=== PATIENT | female | born 1935 | race Caucasian/White ===

== ENCOUNTER 2018-08-28 09:16 | Inpatient (IN) | payer OTHER ==
[~2018-08-28] VITALS: Ht 152.4 cm; Wt 50.4 kg
[2018-08-28 09:16] VITALS: BP 167/78
[~2018-08-28 09:16] MED LIST: ATIVAN1 MG PO; BISACODYL SUPP10 MG RECTAL; CALCIUM 600 +1 EAC1 PO; CEFTIN 250 MG250 MG PO; CIPRO500 MG PO; CITRATE OF MAG296 ML PO; COLACE 100 MG100 MG PO; COREG3.125 MG PO; COREG6.25 MG PO; FLOMAX0.4 MG PO; HYDROCHLOROTH12.5 M1 PO; LEVOTHYROXINE 0.1 MG PO; MILK OF MA2400 MG/10 PO; NORCO 5-325 TA1 EACH PO; NORVASC5 MG PO; PEPCID20 MG PO; PHENERGAN12.5 M2 RECTAL; PREDNISONE 20 M20 MG PO; ROXICODONE5 M2 PO; SENNA8.6 MG PO; SEROQUEL 25 MG25 M1 PO; SPIRIVA INH; TRANSDERM-SCO1 PATC1 TRANSDERM; TYLENOL325 MG PO; VALSARTAN-HCTZ1 EAC1 PO; VENTOLIN HFA 1818 GM INH; ZOCOR20 MG PO; ZOFRAN ODT4 MG DISSOLVE
[2018-08-28 11:30] LABS: ABSOLUTE NEUTROPHILS 7.4 thou/uL (1.4-8.2); BASOPHILS 0.6 % (0.0-2.0); EOSINOPHILS 0.6 % (0.0-3.0); HEMOGLOBIN 14.2 gm/dL (12.0-15.0); LYMPHOCYTES 9.4 % (24.0-44.0); MCH 30.8 pg (26.0-34.0); MCHC 33.9 g/dL (28.0-37.0); MCV 90.9 fL (80.0-100.0); MONOCYTES 8.2 % (1.0-8.0); PLATELET COUNT 295 thou/uL (150-400); POLYS 81.2 % (36.0-66.0); RBC 4.62 mil/uL (4.20-5.00); RDW 13.3 % (10.5-14.5); WBC 9.1 thou/uL (4.0-11.0)
[2018-08-28 11:36] LABS: CALCIUM 9.3 mg/dL (8.5-10.1); CREATININE 0.6 mg/dL (0.6-1.0); POTASSIUM 3.8 mmol/L (3.5-5.1)
[2018-08-28 12:35] LABS: URINE BILIRUBIN NEGATIVE (Negative); URINE BLOOD TRACE (Negative); URINE CLARITY CLEAR; URINE GLUCOSE-RANDOM* NEGATIVE (Negative); URINE KETONES NEGATIVE (Negative); URINE LEUKOCYTES-REFLEX NEGATIVE (Negative); URINE NITRITE-REFLEX NEGATIVE (Negative); URINE PROTEIN (DIPSTICK) NEGATIVE (Negative); URINE SPECIFIC GRAVITY <= 1.005 (1.005-1.035); URINE UROBILINOGEN 0.2 E.U./dl (0.2-1.0)
[2018-08-28] MEDS ORDERED: SYNTHROID100 MC1 PO (12:36)
[2018-08-28] MEDS ORDERED: ATIVAN1 MG PO (12:36)
[2018-08-28 12:37] LABS: URINE COLOR LT YELLOW
[2018-08-28] MEDS ORDERED: CLOBETASOL PROP15 GM TOP (12:37)
[2018-08-28] MEDS ORDERED: MIRALAX17 GM PO (14:11)
[2018-08-28] MEDS ORDERED: STOOL SOFT-STI1 EACH PO (14:11)
[2018-08-28] MEDS ORDERED: REMERON15 MG PO (14:12)
[2018-08-28 15:10] VITALS: BP 137/74
[2018-08-28 17:27] VITALS: BP 137/74
[2018-08-28 17:53] VITALS: BP 128/79
[2018-08-28 19:30] VITALS: BP 130/60
--- NOTE | 2018-08-28 20:33 | NUR ---
Assumed pt care from the ER, pt is alert and oriented x 4 but needs extra time to answer. Pt has a sling on her left arm, pt did not want any pain medication since pain in minimal when she is not moved. Pt was able to use the bedside commode with 1 person assists. bed and chair alarm in placed and hourly rounding done. POC followed.
[2018-08-29 04:14] VITALS: BP 141/61
--- NOTE | 2018-08-29 04:37 | NUR ---
Pt. rested quietly at intervals during the night when checked on during frequent rounds. She did c/o some left shoulder pain and po tylenol given (see emar) with some relief noted. Left shoulder in immobilizer. Bed alarm on.
[2018-08-29 07:05] VITALS: BP 105/48
[2018-08-29 07:12] VITALS: BP 148/67
--- NOTE | 2018-08-29 07:21 | NUR ---
PATIENT WITH A CLAVICLE FRACTURE, WILL EVALUATE PATIENT AFTER ORTHO CONSULT.
--- NOTE | 2018-08-29 10:10 | NUR ---
PATIENT CARE WAS ASSUMED AT 0715.PATIENT IS ALERT AND ORIENTED X4.PATIENT HAS SLING ON LEFT SHOULDER.PT IS X1 ASSIST TO BR.ORTHO VISIT PT THIS MORNING AND WILL NOT DO ANY SURGERY, PT IS ABLE TO DO WHAT SHE CAN TOLERATE.FALL PRECAUTIONS ARE IN PLACE.CALL LIGT,PHONE, AND PERSONAL BELONGINGS ARE WITHIN REACH.
--- NOTE | 2018-08-29 14:47 | NUR ---
PT ADMITTED RELATEDED TO FALL WITH LEFT CLAVICLE FRACTURE. CM REVIEWED CHART AND SPOKE WITH CARE TEAM. CM MET WITH PT AND DTR IN [facility] AT BEDSIDE THIS DAY. THEY INDIATED THAT PT RESIDES IN A HOUSE WITH HER SPOUSE WITH 1 STEP TO ENTER AND 1 STEPS INSIDE. 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 PT INDICATED SHE HAD USED [facility] IN THE PAST. PT INDICATED SHE HAD BEEN TO [facility] IN THE PAST BUT THAT IF POST ACUTE CARE STAY WAS RECEOMMENDED SHE WOULD BE INTERESTED IN LOOKING ELSEWHERE. CM PROVIDED THEM WITH A [facility] SN[facility] LIST FOR REVIEW. CM TO FOLLOW UP WITH THEM TO SEE WHERE THEY WANT REFERRALS SENT. CM TO FOLLOW INDICATED WITH DC PLANNING.
[2018-08-29 14:55] VITALS: BP 127/81
[2018-08-29 19:26] VITALS: BP 122/65
--- NOTE | 2018-08-30 03:52 | NUR ---
Pt. rested quietly during the night when checked on during frequent rounds. She did c/o some pain in her left shoulder and po tylenol given (see emar) with some relief noted. Left arm in immobilzer. Bed alarm is on.
[2018-08-30 05:19] VITALS: BP 130/72
[2018-08-30 07:40] VITALS: BP 146/68
[2018-08-30 08:33] VITALS: BP 146/68
--- NOTE | 2018-08-30 09:20 | NUR ---
PATIENT CARE WAS ASSUMED AT 0715.PATIENT IS ALERT AND ORIENTED X4.PATIENT HAS SPOUSE AT BEDSIDE.PT IS X1 ASSIST TO BR OR BSC.PATIENT HAS NO PAIN AT THIS TIME.IV IS INTACT AND PATENT.CALL LIGHT,PHONE, AND PERSONAL BELONGINGS ARE WITHIN REACH.
--- NOTE | 2018-08-30 10:15 | NUR ---
DISCHARGE PLANNING. PATIENT IS MEDICALLY READY FOR DISCHARGE. POST ACUTE RECOMMENDED FOR PATIENT. REFERRAL FAXED TO [facility] FOR [facility] CARE NEEDS PER PATIENT REQUEST. CALL PLACED TO [facility] TO NOTIFY OF REFERRAL AND THAT PATIENT IS READY FOR DISCHARGE TODAY. [facility] TO REVIEW AND NOTIFY CM. FOLLOWING TO ASSIST.
--- NOTE | 2018-08-30 10:53 | HC ---
[facility] [place] [address] CONSULTATION Name: BRODIE DAVIDSON Room #: 452- ADM IN M.R.#: [id number] Admission: 08/28/18 ������������������ Attend Phys: Kip De Luna MD Discharge: ������������������ Date of : 31 Report #: [id number] THIS REPORT FOR: //name// CC: Austin De Luna DATE OF SERVICE: 08/29/2018 CHIEF COMPLAINT: Left clavicle fracture. HISTORY OF PRESENT ILLNESS: This very frail 83-year-old female has had a previous stroke and has strength and balance problems. She has had multiple falls. She apparently fell from her bed at home yesterday. She awoke and had more left shoulder pain and was admitted. X-rays confirm a fracture of the left distal clavicle. The shoulder itself appears to be well aligned and no evidence of fracture involving the proximal humerus nor any evidence of dislocation involving the shoulder joint. She has no other significant injuries. At the time of my evaluation, she is alert and oriented and accompanied by her spouse. They note that she does have problems with balance and has to use a walker and has had frequent falls in the past. Today, there is some bruising and tenderness over the left shoulder, in the region of the distal clavicle. There appears to be slight upriding, consistent with a distal clavicle fracture. The overlying skin is intact. The shoulder itself demonstrates satisfactory alignment and stability with gentle range of motion. The elbow, forearm, wrist and hand appear to be normal. X-rays of left shoulder confirm a fracture of the distal clavicle, with slight elevation and significant degenerative change at the acromioclavicular joint. I think this fracture should do nicely with conservative management. I doubt any surgery will be necessary. She can use an arm sling for support and protection and comfort. However, she may use the arm at any point whenever her level of comfort will allow. I suspect she will need to have the use of the arm to utilize her walker for safety and balance purposes. Consequently, she probably cannot ambulate independently until she is sufficiently comfortable to use her walker for safety and balance. In the interim, she will need additional help for balance and safety during transfers and ambulation. I feel she can begin to use the arm even now for gentle limited use if this is feasible for balance and use her walker. If she is too uncomfortable, then we will simply need to avoid the use of the walker and continue with arm sling protection until [address] [address] CONSULTATION Name: BRODIE DAVIDSON Room #: 452-P [facility] IN ..#: [id number] Admission: 08/28/18 ������������������ Attend Phys: Kip De Luna MD Discharge: ������������������ Date of : 31 Report #: [id number] her symptoms improve sufficiently sometime over the coming several weeks. I would suggest a followup visit and x-ray in my office in 3-4 weeks. ��������������������������������������������� <ELECTRONICALLY SIGNED> ���������������������������������������� By: Ayden Victor MD ��������������������������������������������� 08/30/18 [id number] Ayden Victor MD /nt
--- NOTE | 2018-08-30 13:19 | NUR ---
cm left [facility] with salvador with [facility] rt ready for dc and still waiting on auth for [facility], p# [phone], f# [phone]
--- NOTE | 2018-08-30 13:21 | NUR ---
CM MET WITH PT AND FAMILY AT BEDSIDE THIS AM. THEY ASKED THAT REFERRAL BE SENT TO [facility] FOR REVIEW FOR POSSIBLE ADMISSION. REFERRAL WAS SENT AND THEY SUBMITTED FOR AUTH. CM TO FOLLOW INDICATED WITH DC PLANNING.
--- NOTE | 2018-08-30 14:16 | NUR ---
[facility] RECIEVED INSURANCE AUTH. CHART COPY ORDRED. ORDERS TO BE FAXED. TRANSPORT ARRANGED FOR 1500 VIA [address] [facility]. PT AND FAMILY ARE AWARE AND AGREEABLE. REPORT TO BE CALLED TO .
[2018-08-30] MEDS ORDERED: PULMICORT0.5 MG/21 INH (14:41)
[2018-08-30] MEDS ORDERED: ACETAMINOPHEN325 M1 PO (14:42)
--- NOTE | 2018-08-30 15:36 | NUR ---
PATIENT WAS DISCHARGED TO [facility].FAMILY WAS AT BEDSIDE.IV WAS TAKEN OUT CATH INTACT.PT WAS GIVEN TYLENOL BEFORE LEAVING.PAPERWORK WAS GIVEN TO TRANSPORTER.TRANSPORTER TOOK PATIENT IN W/C.PATIENT HAS ALL OF HER BELONGINGS, WITH FAMILY MEMBERS.REPORT WAS CALLED AND MESSAGE WAS LEFT FOR ADMISSION NURSE.
== END 2018-08-30 15:41 | DRG 563 ==
LOC: ER 09:16 → EROBS 10:46 → 4W 10:46
PROVIDERS: Emergency Medicine; ADMIT Hospitalist
DX: S42.032A Displaced fracture of lateral end of left clavicle, initial encounter for closed fracture (principal); E46 Unspecified protein-calorie malnutrition; I10 Essential (primary) hypertension; J44.9 Chronic obstructive pulmonary disease, unspecified; R29.6 Repeated falls; E78.5 Hyperlipidemia, unspecified; E03.9 Hypothyroidism, unspecified; K59.09 Other constipation; W06.XXXA Fall from bed, initial encounter; Z90.49 Acquired absence of other specified parts of digestive tract; Z91.81 History of falling; Z88.0 Allergy status to penicillin; Z88.8 Allergy status to other drugs, medicaments and biological substances; Z79.899 Other long term (current) drug therapy; Z87.891 Personal history of nicotine dependence; Z68.21 Body mass index [BMI] 21.0-21.9, adult; I69.393 Ataxia following cerebral infarction; Y93.89 Activity, other specified; Y92.098 Other place in other non-institutional residence as the place of occurrence of the external cause; Y99.8 Other external cause status
CPT/HCPCS: 10040